=== PATIENT | female | born 1985 | race Caucasian/White ===

== ENCOUNTER 2024-11-26 11:43 | Emergency (ER) | payer OTHER ==
[~2024-11-26] VITALS: Ht 170.2 cm; Wt 77.1 kg
[2024-11-26] MEDS ORDERED: CYCL5TAB PO (13:49)
[2024-11-26] MEDS ORDERED: LIDO30AD10 TP (13:49)
[2024-11-26] MEDS ORDERED: IBUP-1957 PO (13:49)
[2024-11-26] MEDS ORDERED: CYCLOBENZAPRINE 10 MG TABLET ONE (14:03)
[2024-11-26] MEDS ORDERED: LIDOCAINE 5% (PATCH) 1 EA PATCH TP ONE (14:03)
[2024-11-26] MEDS: LIDOCAINE 5% (PATCH) 1 EA PATCH TP SCH (14:07)
[2024-11-26] MEDS: CYCLOBENZAPRINE 10 MG TABLET PO ONE (14:07)
[2024-11-26 14:09] VITALS: BP 134/84; TEMP 98.3; O2SAT 98
== END 2024-11-26 14:09 | disposition home or self-care (01) ==
LOC: ER 11:56
DX: Z04.2 Encounter for examination and observation following work accident (principal); M54.2 Cervicalgia; M54.9 Dorsalgia, unspecified; I10 Essential (primary) hypertension; V43.52XA Car driver injured in collision with other type car in traffic accident, initial encounter; Y93.89 Activity, other specified; Y92.89 Other specified places as the place of occurrence of the external cause; Y99.8 Other external cause status